=== PATIENT | male | born 1965 | race Caucasian/White ===

== ENCOUNTER 2023-03-18 15:18 | Emergency (ER) | payer MEDICARE, OTHER ==
[~2023-03-18] VITALS: Ht 190.5 cm; Wt 115.7 kg
[~2023-03-18 15:18] MED LIST: ARIPIPRAZOLE10 MG PO; ARIPIPRAZOLE30 MG PO; CHLORDIAZEPOXID25 MG PO; CHLORPROMAZINE50 MG PO; CLONAZEPAM1 MG PO; CLONIDINE HCL0.1 MG PO; DULOXETINE HCL60 MG PO; GABAPENTIN300 MG PO; KETOCONAZOLE120 ML TOP; LIDOCAINE HC28.35 GM TOP; METOPROLOL TAR100 MG PO; MIRTAZAPINE45 MG PO; NAPROXEN500 MG PO; NORCO 5-325 TA1 EACH PO; ROBAXIN500 MG PO; ZIPRASIDONE HCL80 MG PO; ZOLPIDEM TARTRA10 MG PO
--- OUTSIDE RECORDS SUMMARY | 2023-03-18 15:22 | XMS ---
PreManage Notification: MAYELA ABDULLAHI Security Rn Heart Events No recent Security Events currently on file CRITERIA MET - [facility] CARE PROVIDERS FUENTES [facility] Current PHONE: Unknown [facility] the following [facility] Julio VISIT COUNT (12 MO.) [address] [id number] PATRICIA Gillis TOTAL 10 NOTE: Visits indicate total known visits. ED/UCC VISIT TRACKING (12 MO.) 03/18/2023 15:19 [facility] [place] TYPE: Emergency COMPLAINT: - MEDICAL CLEARANCE 12/29/2022 13:09 [facility] TYPE: Emergency DIAGNOSES: - Noninfective gastroenteritis and colitis, unspecified - DIZZINESS 12/24/2022 11:55 [facility] [place] TYPE: Emergency DIAGNOSES: - Major depressive disorder, recurrent, moderate - Suicidal ideations - PANICK ATTACK FEELS SUICIDAL 11/05/2022 18:09 [employer] [employer] [facility] [place] TYPE: Emergency DIAGNOSES: - Hallucinations, unspecified - Suicidal ideations - MENTAL HEALTH ASSESSMENT 10/08/2022 07:41 [facility] [place] TYPE: Emergency DIAGNOSES: - Acute stress reaction - Unspecified psychosis not due to a substance or known physiological condition - HALLUCINATIONS 07/05/2022 18:40 [facility] [place] TYPE: Emergency DIAGNOSES: - Anxiety disorder, unspecified - Other sites of candidiasis - anxiety 07/01/2022 09:15 [facility] [employer] [place] TYPE: Emergency DIAGNOSES: - Other psychoactive substance use, unspecified, uncomplicated - Pyuria - Suicidal ideations - DIFFICULTY BREATHING, RACING HEART, HALLUCINATIONS 06/29/2022 17:46 [facility] [place] TYPE: Emergency DIAGNOSES: - Acute cystitis without hematuria - Delusional disorders - mental [facility] - mental health 05/02/2022 21:08 [facility] [place] TYPE: Emergency DIAGNOSES: - Unspecified complication of genitourinary prosthetic device, implant and graft, initial encounter - POST OP BLEEDING 04/29/2022 16:08 [facility] [employer] [place] TYPE: Emergency DIAGNOSES: - Acquired absence of other genital organ(s) - Gross hematuria - Sleep disorder, unspecified - BLEEDING INPATIENT VISIT TRACKING (12 MO.) No inpatient visits to display in this time frame [email or web address]
[2023-03-18] MEDS ORDERED: BUPROPION XL150 MG PO (17:11)
[2023-03-18] MEDS ORDERED: SIMVASTATIN20 MG PO (17:11)
[2023-03-18] MEDS ORDERED: KETOCONAZOLE120 ML TOP (17:13)
[2023-03-18] MEDS ORDERED: CICLOPIROX15 GM TOP (17:13)
[2023-03-18] MEDS ORDERED: HALOPERIDOL10 MG PO (17:14)
[2023-03-18] MEDS ORDERED: OLANZAPINE20 MG PO (17:14)
[2023-03-18] MEDS ORDERED: AMLODIPINE BESYL5 MG PO (17:15)
[2023-03-18] MEDS ORDERED: FLUOXETINE HCL40 MG PO (17:15)
[2023-03-18] MEDS ORDERED: LOSARTAN POTASS50 MG PO (17:16)
[2023-03-18] MEDS ORDERED: FLUCONAZOLE150 MG PO (17:17)
[2023-03-18] MEDS ORDERED: METOPROLOL TART50 MG PO (17:20)
[2023-03-19 11:44] VITALS: BP 128/80
== END 2023-03-19 11:40 | disposition home or self-care (01) ==
LOC: ED 15:18
DX: F20.9 Schizophrenia, unspecified (principal); I10 Essential (primary) hypertension; Z88.8 Allergy status to other drugs, medicaments and biological substances; Z91.048 Other nonmedicinal substance allergy status; Z79.899 Other long term (current) drug therapy; Z87.891 Personal history of nicotine dependence
CPT/HCPCS: 36415; 80053; 81003; 84443; 85025; A9270; G0480

== ENCOUNTER 2023-09-28 23:14 | Emergency (ER) | payer MEDICARE, OTHER ==
[~2023-09-28] VITALS: Ht 190.5 cm; Wt 107.5 kg
[~2023-09-28 23:14] MED LIST changes: +AMLODIPINE BESYL5 MG PO; +BUPROPION XL150 MG PO; +CICLOPIROX15 GM TOP; +FLUCONAZOLE150 MG PO; +FLUOXETINE HCL40 MG PO; +HALOPERIDOL10 MG PO; +LOSARTAN POTASS50 MG PO; +METOPROLOL TART50 MG PO; +OLANZAPINE20 MG PO; +SIMVASTATIN20 MG PO
[2023-09-28] MEDS ORDERED: AMBIEN10 MG PO (23:26)
[2023-09-28] MEDS ORDERED: ZYPREXA20 MG PO (23:32)
[2023-09-28] MEDS ORDERED: WELLBUTRIN XL300 MG PO (23:32)
[2023-09-28] MEDS ORDERED: HALDOL PO (23:33)
[2023-09-28] MEDS ORDERED: COGENTIN PO (23:34)
[2023-09-29 00:01] VITALS: BP 132/84
== END 2023-09-29 00:01 | disposition home or self-care (01) ==
LOC: ED 23:14
DX: F20.9 Schizophrenia, unspecified (principal); I10 Essential (primary) hypertension; Z87.891 Personal history of nicotine dependence; Z88.8 Allergy status to other drugs, medicaments and biological substances; Z79.899 Other long term (current) drug therapy
CPT/HCPCS: A9270-GY